=== PATIENT | male | born 2000 | race Caucasian/White ===

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

== ENCOUNTER 2020-01-03 02:34 | Emergency (ER) | payer SELFPAY ==
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
== END 2020-01-03 03:10 ==
LOC: JD.ED 02:34
DX: F16.10 Hallucinogen abuse, uncomplicated (principal); F12.90 Cannabis use, unspecified, uncomplicated; F17.290 Nicotine dependence, other tobacco product, uncomplicated
CPT/HCPCS: 99283